=== PATIENT | female | born 1990 ===

== ENCOUNTER 2020-06-03 17:58 | Emergency (ER) | payer SELFPAY ==
[2020-06-03] MEDS ORDERED: DIPH/PERTUSS(ACELL)/TETANUS VAC/PF 0.5 ML SYR (>=10YO) IM ONE (18:48)
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
[2020-06-03] MEDS ORDERED: AMOXICILLIN TR/POT CLAVULANATE 875-125 MG TAB PO ONE (20:38)
[2020-06-03] MEDS ORDERED: DIAZEPAM 5 MG TABLET PO ONE (20:39)
[2020-06-03 20:55] VITALS: BP 140/95
== END 2020-06-03 20:40 | disposition home or self-care (01) ==
LOC: ER 17:58
DX: S06.0X9A Concussion with loss of consciousness of unspecified duration, initial encounter (principal); S02.2XXA Fracture of nasal bones, initial encounter for closed fracture; S01.21XA Laceration without foreign body of nose, initial encounter; S02.401A Maxillary fracture, unspecified side, initial encounter for closed fracture; Y04.2XXA Assault by strike against or bumped into by another person, initial encounter; Y93.89 Activity, other specified; Y92.009 Unspecified place in unspecified non-institutional (private) residence as the place of occurrence of the external cause; Y99.0 Civilian activity done for income or pay; R09.81 Nasal congestion; F41.9 Anxiety disorder, unspecified; Z23 Encounter for immunization
CPT/HCPCS: 99284; 90471; 70450; 70486; 72125; 90715; J3490